=== PATIENT | male | born 1965 | race African-American/Black ===

== ENCOUNTER 2017-10-07 00:51 | Emergency (ER) | payer OTHER ==
--- NOTE | 2017-10-07 00:53 | ED.PDOC ---
History of Present Illness - General Chief Complaint: Respiratory Problem Stated Complaint: flu-like illness Time Seen by Provider: 10/07/17 00:52 Source: patient, RN notes reviewed, Vital Signs reviewed Additional Information: URI symptoms x 1 week with worsening in past 24 hours - mylagias, fevers, and chills. Left work to come and be assessed. - History of Present Illness Timing/Duration: getting worse - over the past 24 hrs. Cough Quality/Degree: moderate, dry cough Possible Cause: unknown cause Improving Factors: nothing Worsening Factors: nothing Associated Symptoms: cough, fever/chills, headache, muscle aches Allergies/Adverse Reactions: Allergies NO KNOWN ALLERGY Allergy (Verified 10/07/17 01:14) Home Medications: Ambulatory Orders Azithromycin [Zithromax Z-Kevin] 1 ea PO DAILY #1 pack 10/07/17 Fluticasone Propionate (Nasal) [Flonase] 1 spray BNAS DAILY #1 bottle 10/07/17 Review of Systems - Review of Systems Constitutional: States: see HPI, chills, fever EENTM: States: see HPI, nose congestion, throat pain Respiratory: States: see HPI, cough Gastrointestinal/Abdominal: States: no symptoms reported Genitourinary: States: no symptoms reported Musculoskeletal: States: see HPI, muscle pain Skin: States: no symptoms reported Neurological: States: no symptoms reported Endocrine: States: no symptoms reported Hematologic/Lymphatic: States: no symptoms reported Family Medical History - Family History Mother Family History: Unknown Living Status: Unknown Physical Exam - Physical Exam General Appearance: Alert, Comfortable, No apparent distress, Well Developed, Well Groomed, Well Hydrated, Well Nourished Eye Exam: bilateral normal ENT Exam: normal ENT inspection, hearing grossly normal, TMs normal, pharynx normal Neck: non-tender, full range of motion, supple, normal inspection Respiratory: normal breath sounds, no respiratory distress, no accessory muscle use Cardiovascular/Chest: normal peripheral pulses, regular rate, rhythm, no murmur Gastrointestinal/Abdominal: non tender, soft Extremity: normal range of motion, non-tender 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 Given fever, mildly decreased POX, and persistent cough - CXR ordered and patient started empirically on Azithromycin. 10/07/17 02:19 CXR Report pending - my impression: no acute cardiopulmonary process. - Results/Orders Results/Orders: Flu negative. Strep negative. Departure - Departure Clinical Impression: Fever Qualifiers: Fever type: unspecified Qualified Code(s): R50.9 - Fever, unspecified Pneumonia Qualifiers: Pneumonia type: due to unspecified organism Laterality: unspecified laterality Lung location: unspecified part of lung Qualified Code(s): J18.9 - Pneumonia, unspecified organism Allergic rhinitis Qualifiers: Chronicity: chronic Allergic rhinitis trigger: unspecified Allergic rhinitis seasonality: seasonal Qualified Code(s): J30.2 - Other seasonal allergic rhinitis Time of Disposition: 02:40 Disposition: Discharge to Home or Self Care Condition: Fair Departure Forms: ED Discharge - Pt. Copy, Patient Portal Self Enrollment Instructions: DI for Viral Upper Respiratory Infection -- Adult Prescriptions: Azithromycin [Zithromax Z-Kevin] 1 ea PO DAILY #1 pack Fluticasone Propionate (Nasal) [Flonase] 1 spray BNAS DAILY #1 bottle Home Medications: Ambulatory Orders Azithromycin [Zithromax Z-Kevin] 1 ea PO DAILY #1 pack 10/07/17 Fluticasone Propionate (Nasal) [Flonase] 1 spray BNAS DAILY #1 bottle 10/07/17 Additional Instructions: Stay well hydrated. Take antibiotics as prescribed. Use over the counter Tylenol and Ibuprofen as directed on label for pain and fever control. Recommend no work for Sunday, Sunday, and Sunday to allow for treatment, rest, and recovery. Follow-up with Primary Care provider if symptoms persist in 3 to 5 days, or return to ER sooner if condition worsens. Flonase should help with your allergic rhinitis symptoms.
[2017-10-07] MEDS ORDERED: ACETAMINOPHEN 500 MG TAB ONE (01:19)
[2017-10-07] MEDS ORDERED: ACETAMINOPHEN 500 MG TAB PO ONE (01:30)
[2017-10-07] MEDS ORDERED: KETOROLAC TROMETHAMINE INJ 60 MG/2 ML VIAL IM ONE (01:41)
[2017-10-07] MEDS ORDERED: AZITHROMYCIN 250 MG TAB PO ONE (02:05)
[2017-10-07 02:34] VITALS: BP 128/72; TEMP 99.9; O2SAT 94
--- NOTE | 2017-10-07 02:39 | RAD ---
Procedure: XR CHEST 2 VIEWS Exam Date: 10/07/2017 Ordering Provider: Tani Burns Clinical Indication: persistent cough and mild hypoxia Comparison: None Findings: Cardiomediastinal silhouette: Within normal limits Pulmonary vasculature : Unremarkable Aortic contour: Unremarkable Focal lung consolidation: None Pleural effusion: None Pneumothorax: None Bones and soft tissues: Nonacute Impression: 1. No acute abnormalities in the chest. Electronically signed by: Jeff Chapman MD 10/07/2017 2:37 AM [employer]
== END 2017-10-07 02:34 | disposition home or self-care (01) ==
LOC: ER 00:51
DX: J18.9 Pneumonia, unspecified organism (principal); J30.2 Other seasonal allergic rhinitis; R50.81 Fever presenting with conditions classified elsewhere
CPT/HCPCS: 71020; 87070; 87502; 87651; J1885; Q0144

== ENCOUNTER 2017-10-23 12:31 | Emergency (ER) | payer OTHER ==
[2017-10-23 12:54] VITALS: TEMP 98.4
--- NOTE | 2017-10-23 13:13 | ED.PDOC ---
History of Present Illness - General Chief Complaint: Respiratory Problem Stated Complaint: cough Time Seen by Provider: 10/23/17 13:06 Source: patient Exam Limitations: no limitations - History of Present Illness Comments: COUGH X 1 MO, CHILLS. LAST WEEK ER = NEG FLU AND STREP, NEG CXR, GAVE XPACK WHICH HE FINISHED. SX NOT IMPROVED. CHEST "RATTLE" AND COUGH. NO CHRONIC MEDS. PMH JUST OCCAS SINUSITIS. Timing/Duration: constant Cough Quality/Degree: moderate Possible Cause: illness exposure Improving Factors: nothing Worsening Factors: nothing Associated Symptoms: cough Respiratory Risk Factors: no cause identified Allergies/Adverse Reactions: Allergies NO KNOWN ALLERGY Allergy (Verified 10/07/17 01:14) Home Medications: Ambulatory Orders Azithromycin [Zithromax Z-Kevin] 1 ea PO DAILY #1 pack 10/07/17 Fluticasone Propionate (Nasal) [Flonase] 1 spray BNAS DAILY #1 bottle 10/07/17 Albuterol Sulfate [Proair Hfa] 2 puff INH Q6H PRN #1 inhaler 10/23/17 Amoxicillin & Pot Clavulanate [Augmentin] 875 mg PO BID #20 tab 10/23/17 Benzonatate Perles [Tessalon Perles] 100 mg PO TID PRN #30 cap 10/23/17 Methylprednisolone [Medrol Dose Kevin] 4 mg PO DAILY #1 tab 10/23/17 Review of Systems - Review of Systems Constitutional: States: chills, malaise EENTM: Denies: ear pain, nose congestion Respiratory: States: cough. Denies: short of breath Cardiology: Denies: chest pain, palpitations Gastrointestinal/Abdominal: States: no symptoms reported Genitourinary: States: no symptoms reported Musculoskeletal: States: no symptoms reported Skin: States: no symptoms reported Neurological: States: no symptoms reported Endocrine: States: no symptoms reported Hematologic/Lymphatic: States: no symptoms reported All other Systems: Reviewed and Negative Past Medical History (General) - Patient Medical History Hx Seizures: No Hx Stroke: No Hx Dementia: No Hx Asthma: No Hx of COPD: No Hx Cardiac Disorders: No Hx Congestive Heart Failure: No Hx Pacemaker: No Hx Hypertension: No Hx Thyroid Disease: No Hx Diabetes: No Hx Gastroesophageal Reflux: No Hx Renal Disease: No Hx Cancer: No Hx of HIV: No Hx Hepatitis C: No Hx MRSA: No Surgical History: appendectomy - Vaccination History Hx Tetanus, Diphtheria Vaccination: No Hx Influenza Vaccination: No Hx Pneumococcal Vaccination: No - Social History Hx Tobacco Use: Yes - smokes cigars Hx Alcohol Use: No Family Medical History - Family History Mother Family History: Unknown Living Status: Unknown Physical Exam - Physical Exam General Appearance: Alert, Ill Appearing Eye Exam: bilateral normal ENT Exam: normal ENT inspection, TMs normal, pharynx normal Neck: non-tender, full range of motion, supple Respiratory: chest non-tender, no respiratory distress, no accessory muscle use , wheezing Cardiovascular/Chest: normal peripheral pulses, regular rate, rhythm, no edema, no gallop, no JVD, no murmur Gastrointestinal/Abdominal: normal bowel sounds, non tender, soft Extremity: non-tender, normal inspection Neurologic: no motor/sensory deficits, alert, normal mood/affect Skin Exam: normal color, warm/dry Lymphatic: no adenopathy Progress - Results/Orders Results/Orders: RAPID FLU NEG. CBC NONCONTRIBUTORY (MILD ANEMIA) CXR NEG BRONCHITIS. GIVEN 1 MO COUGH AND WHEEZE UPON EXAM, I AM TREATING WITH ABX, STEROIDS, ALBUTEROL, TESSALON. Departure - Departure Clinical Impression: Bronchitis, Wheeze, Cough Disposition: Discharge to Home or Self Care Condition: Good Departure Forms: ED Discharge - Pt. Copy, Patient Portal Self Enrollment Instructions: DI for Acute Bronchitis Diet: resume usual diet Activity: increase activity as tolerated Prescriptions: Albuterol Sulfate [Proair Hfa] 2 puff INH Q6H PRN #1 inhaler PRN Reason: Shortness Of Breath/Wheezing Amoxicillin & Pot Clavulanate [Augmentin] 875 mg PO BID #20 tab Benzonatate Perles [Tessalon Perles] 100 mg PO TID PRN #30 cap PRN Reason: Cough Methylprednisolone [Medrol Dose Kevin] 4 mg PO DAILY #1 tab Home Medications: Ambulatory Orders Azithromycin [Zithromax Z-Kevin] 1 ea PO DAILY #1 pack 10/07/17 Fluticasone Propionate (Nasal) [Flonase] 1 spray BNAS DAILY #1 bottle 10/07/17 Albuterol Sulfate [Proair Hfa] 2 puff INH Q6H PRN #1 inhaler 10/23/17 Amoxicillin & Pot Clavulanate [Augmentin] 875 mg PO BID #20 tab 10/23/17 Benzonatate Perles [Tessalon Perles] 100 mg PO TID PRN #30 cap 10/23/17 Methylprednisolone [Medrol Dose Kevin] 4 mg PO DAILY #1 tab 10/23/17
[2017-10-23] MEDS ORDERED: IPRATROPIUM/ALBUTEROL 3 ML VIAL NEB ONE (13:18)
--- NOTE | 2017-10-23 13:57 | RAD ---
Study: Single Frontal View of the Chest. Indication:COUGH X 1 MONTH Comparison: October 07, 2017. Impression: Very subtle interstitial thickening the lung bases, which may reflect atelectasis versus developing consolidation. Short-term follow-up recommended. No pleural effusion or pneumothorax. Heart size normal. 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 Electronically signed by: Titus Nichole MD 10/23/2017 1:56 PM REGIONAL COORDINATOR
[2017-10-23] MEDS ORDERED: methylPREDNISolone ACETATE 80 MG/ML VIAL IM ONE (14:33)
[2017-10-23] MEDS ORDERED: cefTRIAXone SODIUM 1 GM VIAL IM ONE (14:33)
[2017-10-23] MEDS ORDERED: LIDOCAINE 1% 10 ML VIAL INJ ONE (14:42)
[2017-10-23 15:08] VITALS: BP 121/76; O2SAT 96
== END 2017-10-23 15:02 | disposition home or self-care (01) ==
LOC: ER 12:31
DX: J40 Bronchitis, not specified as acute or chronic (principal); F17.290 Nicotine dependence, other tobacco product, uncomplicated
CPT/HCPCS: 36415; 71045; 85025; 87502; 94640; J0696; J1030; J7620

== ENCOUNTER 2018-02-11 16:01 | Emergency (ER) | payer OTHER ==
[2018-02-11] MEDS ORDERED: LIDOCAINE 1% W/ EPINEPHRINE 20 ML VIAL INJ ONE (16:17)
[2018-02-11 16:19] VITALS: TEMP 97.9
--- NOTE | 2018-02-11 16:35 | ED.PDOC ---
History of Present Illness - General Chief Complaint: Skin/Abrasion/Tear Stated Complaint: Fish hook to Left leg Time Seen by Provider: 02/11/18 16:24 Source: patient Exam Limitations: no limitations - History of Present Illness Initial Comments: the patient is a 52-year-old -[place]ian male presenting to the emergency room secondary to getting a fishhook stuck in his left early about an hour prior to arrival. he try to get it out with a Pliers but was unable to. He ended up cutting it about a centimeter from the skin. Timing/Duration: 1 hour Severity: mild Improving Factors: nothing Worsening Factors: nothing Associated Symptoms: denies symptoms Allergies/Adverse Reactions: Allergies NO KNOWN ALLERGY Allergy (Verified 02/11/18 16:16) Home Medications: Ambulatory Orders Sulfa/Trimeth 800/160 (Ds) Tab [Bactrim DS Tab] 1 ea PO BID #7 tab 02/11/18 Review of Systems - Review of Systems Constitutional: States: no symptoms reported EENTM: States: no symptoms reported Respiratory: States: no symptoms reported Cardiology: States: no symptoms reported Gastrointestinal/Abdominal: States: no symptoms reported Genitourinary: States: no symptoms reported Musculoskeletal: States: no symptoms reported Skin: States: see HPI Neurological: States: no symptoms reported Endocrine: States: no symptoms reported All other Systems: No Change from Baseline Past Medical History (General) - Patient Medical History Hx Seizures: No Hx Stroke: No Hx Dementia: No Hx Asthma: No Hx of COPD: No Hx Cardiac Disorders: No Hx Congestive Heart Failure: No Hx Pacemaker: No Hx Hypertension: No Hx Thyroid Disease: No Hx Diabetes: No Hx Gastroesophageal Reflux: No Hx Renal Disease: No Hx Cancer: No Hx of HIV: No Hx Hepatitis C: No Hx MRSA: No Surgical History: appendectomy - Vaccination History Hx Tetanus, Diphtheria Vaccination: No Hx Influenza Vaccination: Yes - 2017 Hx Pneumococcal Vaccination: No - Social History Hx Tobacco Use: Yes Hx Alcohol Use: No Family Medical History - Family History Mother Family History: Unknown Living Status: Unknown Physical Exam - Physical Exam General Appearance: Alert, Comfortable, No apparent distress Eye Exam: bilateral normal Ears, Nose, Throat: hearing grossly normal Neck: full range of motion Respiratory: no respiratory distress, no accessory muscle use Cardiovascular/Chest: normal peripheral pulses, no edema Peripheral Pulses: radial,right: 2+, radial,left: 2+, dorsalis pedis,right: 2+, dorsalis pedis,left: 2+ Rectal Exam: deferred Extremity: normal range of motion, non-tender, no pedal edema, no calf tenderness, normal capillary refill 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 It is in the skin. It is not in the bone. The wound is cleaned with alcohol and pliers and a scalpel are used to back out the fish hook. It is cleaned further with alcohol. A tetanus shot was given. He was given a dose of Bactrim. He'll be placed on Bactrim twice daily for the next 3 days. He needs to monitor for any evidence of infection. ER warnings were given. Departure - Departure Clinical Impression: Fish hook injury of lower leg Qualifiers: Encounter type: initial encounter Laterality: left Qualified Code(s): S89.92XA - Unspecified injury of left lower leg, initial encounter Disposition: Discharge to Home or Self Care Condition: Fair Departure Forms: ED Discharge - Pt. Copy, Patient Portal Self Enrollment Instructions: DI for Wound Infection Diet: regular diet Activity: increase activity as tolerated Prescriptions: Sulfa/Trimeth 800/160 (Ds) Tab [Bactrim DS Tab] 1 ea PO BID #7 tab Home Medications: Ambulatory Orders Sulfa/Trimeth 800/160 (Ds) Tab [Bactrim DS Tab] 1 ea PO BID #7 tab 02/11/18 Additional Instructions: the patient is a 52-year-old male presenting to the emergency room secondary to a fish hook in his left early. It is in the skin. It is not in the bone. The wound is cleaned with alcohol and pliers and a scalpel are used to back out the fish hook. It is cleaned further with alcohol. A tetanus shot was given. He was given a dose of Bactrim. He'll be placed on Bactrim twice daily for the next 3 days. He needs to monitor for any evidence of infection. ER warnings were given.
[2018-02-11] MEDS: TETANUS,DIPHTHERIA,PERTUSSIS 1 EA SYG IM ONE (16:40)
[2018-02-11] MEDS: SULFA/TRIMETH 800/160 (DS) TAB 1 EA TAB PO ONE (16:40)
[2018-02-11 17:02] VITALS: BP 115/72; O2SAT 98
== END 2018-02-11 17:03 | disposition home or self-care (01) ==
LOC: ER 16:01
DX: S80.852A Superficial foreign body, left lower leg, initial encounter (principal); Z87.891 Personal history of nicotine dependence; Z23 Encounter for immunization; X58.XXXA Exposure to other specified factors, initial encounter; Y92.9 Unspecified place or not applicable

== ENCOUNTER 2018-11-18 01:57 | Emergency (ER) | payer OTHER ==
[2018-11-18 02:10] VITALS: BP 156/88; TEMP 99.7; O2SAT 96
[2018-11-18] MEDS ORDERED: IBUPROFEN 200 MG TAB PO ONE (02:19)
[2018-11-18] MEDS ORDERED: OSELTAMIVIR 75 MG CAP PO ONE (02:28)
--- NOTE | 2018-11-18 02:31 | ED.PDOC ---
History of Present Illness - General Chief Complaint: Respiratory Problem Stated Complaint: cough, headache Time Seen by Provider: 11/18/18 02:00 Source: patient Exam Limitations: no limitations - History of Present Illness Initial Comments: Patient is a 53-year-old male presented to the emergency room secondary to 2-3 days of cough, fever, headache and sore throat. Flu is prevalent in the community. No shortness of breath. No syncope or near-syncope. No chest pain. No vomiting. Severity: moderate Improving Factors: nothing Worsening Factors: nothing Allergies/Adverse Reactions: Allergies NO KNOWN ALLERGY Allergy (Verified 02/11/18 16:16) Home Medications: Ambulatory Orders Oseltamivir Capsule [Tamiflu] 75 mg PO BID 5 Days #10 capsule 11/18/18 Review of Systems - Review of Systems Constitutional: States: chills, diaphoresis, fever, malaise EENTM: States: nose congestion, throat pain Respiratory: States: cough Cardiology: States: no symptoms reported Gastrointestinal/Abdominal: States: no symptoms reported Genitourinary: States: no symptoms reported Musculoskeletal: States: no symptoms reported - myalgias Skin: States: no symptoms reported Neurological: States: no symptoms reported Endocrine: States: no symptoms reported All other Systems: No Change from Baseline Past Medical History (General) - Patient Medical History Hx Seizures: No Hx Stroke: No Hx Dementia: No Hx Asthma: No Hx of COPD: No Hx Cardiac Disorders: No Hx Congestive Heart Failure: No Hx Pacemaker: No Hx Hypertension: No Hx Thyroid Disease: No Hx Diabetes: No Hx Gastroesophageal Reflux: No Hx Renal Disease: No Hx Cancer: No Hx of HIV: No Hx Hepatitis C: No Hx MRSA: No Surgical History: appendectomy - Vaccination History Hx Tetanus, Diphtheria Vaccination: No Hx Influenza Vaccination: No Hx Pneumococcal Vaccination: Yes - Social History Hx Tobacco Use: Yes Hx Alcohol Use: Yes - Triage Comment ED Triage Comment: cough, runny nose, headache. "cold" for 3 weeks, worse past day Family Medical History - Family History Mother Family History: Unknown Living Status: Unknown Physical Exam - Physical Exam General Appearance: Alert, No apparent distress Eye Exam: bilateral normal Ears, Nose, Throat: hearing grossly normal, nasal congestion, pharyngeal erythema Neck: full range of motion, supple Respiratory: lungs clear, normal breath sounds, no respiratory distress, no accessory muscle use Cardiovascular/Chest: normal peripheral pulses, regular rate, rhythm, no edema Peripheral Pulses: radial,right: 2+, radial,left: 2+ Gastrointestinal/Abdominal: non tender, soft Rectal Exam: deferred Back Exam: no CVA tenderness, no vertebral tenderness Extremity: normal range of motion, non-tender, normal inspection, no pedal edema, normal capillary refill 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 He has tested positive for here tonight. He received his first dose of Tamiflu here tonight and will be continued on a 5 day course. Needs to keep himself well-hydrated. Motrin can be taken every 8 hours to help reduce symptoms. ER warnings were given for any significant worsening. Departure - Departure Clinical Impression: Influenza Disposition: Discharge to Home or Self Care Condition: Fair Departure Forms: ED Discharge - Pt. Copy, Patient Portal Self Enrollment Instructions: Flu, Adult (DC) Diet: regular diet Activity: increase activity as tolerated Prescriptions: Oseltamivir Capsule [Tamiflu] 75 mg PO BID 5 Days #10 capsule Home Medications: Ambulatory Orders Oseltamivir Capsule [Tamiflu] 75 mg PO BID 5 Days #10 capsule 11/18/18 Additional Instructions: the patient's 53-year-old male presenting to the emergency room with influenza. He has tested positive for here tonight. He received his first dose of Tamiflu here tonight and will be continued on a 5 day course. Needs to keep himself well-hydrated. Motrin can be taken every 8 hours to help reduce symptoms. ER warnings were given for any significant worsening.
== END 2018-11-18 02:38 | disposition home or self-care (01) ==
LOC: ER 01:57
DX: J11.1 Influenza due to unidentified influenza virus with other respiratory manifestations (principal); Z87.891 Personal history of nicotine dependence

== ENCOUNTER 2019-10-12 20:52 | Emergency (ER) | payer OTHER ==
--- NOTE | 2019-10-12 22:00 | RAD ---
EXAM: XR Chest, 1 View CLINICAL HISTORY: The patient is 54 years old and is Male; sob TECHNIQUE: Frontal view of the chest. COMPARISON: Chest radiograph October 23, 2017. FINDINGS: LUNGS: Unremarkable. No consolidation. PLEURAL SPACE: Unremarkable. No pneumothorax. HEART: Unremarkable. No cardiomegaly. MEDIASTINUM: Unremarkable. BONES/JOINTS: Unremarkable. IMPRESSION: No acute cardiopulmonary process. Electronically signed by: iAmee Arredondo MD 10/12/2019 9:58 PM PATIENT CASE MANAGER
--- NOTE | 2019-10-12 22:37 | ED.PDOC ---
History of Present Illness - General Chief Complaint: General Stated Complaint: fever, cough, bodyaches, headache Time Seen by Provider: 10/12/19 21:38 - History of Present Illness Initial Comments: c/o having intermittent fever, non productive cough, bodyaches, headache Timing/Duration: 24 hours Severity: moderate Improving Factors: nothing Worsening Factors: nothing Associated Symptoms: fever/chills, weakness Allergies/Adverse Reactions: Allergies NO KNOWN ALLERGY Allergy (Verified 10/12/19 21:03) Home Medications: Ambulatory Orders NK 10/12/19 Review of Systems - Review of Systems Constitutional: States: see HPI EENTM: States: see HPI Respiratory: States: no symptoms reported Cardiology: States: no symptoms reported Gastrointestinal/Abdominal: States: no symptoms reported Genitourinary: States: no symptoms reported Musculoskeletal: States: no symptoms reported Skin: States: no symptoms reported Neurological: States: headache Endocrine: States: no symptoms reported Hematologic/Lymphatic: States: no symptoms reported Past Medical History (General) - Patient Medical History Hx Seizures: No Hx Stroke: No Hx Dementia: No Hx Asthma: No Hx of COPD: No Hx Cardiac Disorders: No Hx Congestive Heart Failure: No Hx Pacemaker: No Hx Hypertension: No Hx Thyroid Disease: No Hx Diabetes: No Hx Gastroesophageal Reflux: No Hx Renal Disease: No Hx Cancer: No Hx of HIV: No Hx Hepatitis C: No Hx MRSA: No Surgical History: appendectomy - Vaccination History Hx Tetanus, Diphtheria Vaccination: No Hx Influenza Vaccination: Yes Hx Pneumococcal Vaccination: Yes - Social History Hx Tobacco Use: Yes Hx Alcohol Use: No Family Medical History - Family History Mother Family History: Unknown Living Status: Unknown Physical Exam - Physical Exam General Appearance: Alert, Comfortable, Well Developed, Well Groomed, Well Hydrated, Well Nourished Eye Exam: bilateral normal Ears, Nose, Throat: hearing grossly normal, normal ENT inspection, normal pharynx Neck: non-tender, full range of motion, supple Respiratory: lungs clear, normal breath sounds, no respiratory distress, no accessory muscle use Cardiovascular/Chest: normal peripheral pulses, regular rate, rhythm, no edema, no gallop, no JVD, no murmur Gastrointestinal/Abdominal: non tender, soft Back Exam: normal inspection Extremity: normal range of motion, non-tender, normal inspection Neurologic: no motor/sensory deficits, alert, normal mood/affect, oriented x 3 Skin Exam: normal color, warm/dry Progress - Results/Orders Results/Orders: 10/12/19 21:06 STREP A SCREEN CULTURE Stat Laboratory Results Group A Strep Rapid Negative (NEGATIVE) 10/12/19 21:06 Departure - Departure Clinical Impression: Upper respiratory infection Time of Disposition: 22:36 Disposition: Discharge to Home or Self Care Condition: Good Departure Forms: ED Discharge - Pt. Copy, Patient Portal Self Enrollment Diet: resume usual diet Activity: increase activity as tolerated Home Medications: Ambulatory Orders NK 10/12/19 Additional Instructions: Follow up PCP in 1-2 days
[2019-10-12] MEDS ORDERED: ACETAMINOPHEN 500 MG TAB PO ONE (22:40)
[2019-10-12 22:53] VITALS: BP 153/77; TEMP 101; O2SAT 96
== END 2019-10-12 22:52 | disposition home or self-care (01) ==
LOC: ER 20:52
DX: J06.9 Acute upper respiratory infection, unspecified (principal); Z87.891 Personal history of nicotine dependence

== ENCOUNTER 2019-12-26 06:57 | Emergency (ER) | payer OTHER ==
--- NOTE | 2019-12-26 07:23 | ED.PDOC ---
History of Present Illness - General Time Seen by Provider: 12/26/19 07:18 Source: patient Exam Limitations: no limitations Additional Information: 54yo M presents with cough, congestion, body aches and subjective fevers onset 2 days. The patient reports prior hx of of the same 3 months ago. Symptoms at that time improved with nebulizer at home. The patient denies recent travel or sick contacts. He smokes cigars on occasion. No other reported issues. - History of Present Illness Cough Quality/Degree: dry cough Possible Cause: occasional episodes Allergies/Adverse Reactions: Allergies NO KNOWN ALLERGY Allergy (Verified 12/26/19 07:24) Home Medications: Ambulatory Orders Albuterol Sulfate Nebs [Proventil Nebs] 2.5 mg INH Q6HRS PRN 14 Days #60 vial 12/26/19 Azithromycin Tab [Zithromax Tab] 250 mg PO DAILY #6 tab 12/26/19 Prednisone 20 mg PO DAILY #12 tab 12/26/19 Review of Systems - Review of Systems Constitutional: States: fever - Subjective. Denies: chills EENTM: States: nose congestion. Denies: double vision, throat swelling Respiratory: States: cough, short of breath, wheezing. Denies: stridor Cardiology: Denies: chest pain, palpitations Gastrointestinal/Abdominal: Denies: diarrhea, nausea Musculoskeletal: States: joint pain, muscle pain. Denies: back pain Skin: Denies: change in color, rash Neurological: Denies: headache, numbness, weakness Hematologic/Lymphatic: Denies: anemia, swollen glands Past Medical History (General) - Patient Medical History Hx Seizures: No Hx Stroke: No Hx Dementia: No Hx Asthma: No Hx of COPD: No Hx Cardiac Disorders: No Hx Congestive Heart Failure: No Hx Pacemaker: No Hx Hypertension: No Hx Thyroid Disease: No Hx Diabetes: No Hx Gastroesophageal Reflux: No Hx Renal Disease: No Hx Cancer: No Hx of HIV: No Hx Hepatitis C: No Hx MRSA: No - Vaccination History Hx Tetanus, Diphtheria Vaccination: No Hx Influenza Vaccination: Yes Hx Pneumococcal Vaccination: Yes - Social History Hx Tobacco Use: Yes Hx Alcohol Use: No Family Medical History - Family History Mother Family History: Unknown Living Status: Unknown Father Living Status: Hx Family Diabetes: Yes Physical Exam - Physical Exam General Appearance: Alert Eye Exam: bilateral normal ENT Exam: hearing grossly normal, nasal congestion Neck: non-tender, full range of motion, supple Respiratory: lungs clear, normal breath sounds, no respiratory distress - Intermittent cough, dry. Cardiovascular/Chest: regular rate, rhythm, no edema Gastrointestinal/Abdominal: non tender, soft Extremity: normal range of motion, normal capillary refill Neurologic: no motor/sensory deficits, alert Skin Exam: normal color, warm/dry Lymphatic: no adenopathy Progress - Progress Progress: 12/26/19 07:56 The patient is overall well appearing and tolerating symptoms. He has cough, congestion and subjective fever which would overall suggest a viral type illness. He does have hx of reactive airway with past benefit of nebs but is presently out. I will provide symptomatic treatment for him to use at home. We discussed that today's evaluation does not r/o COVID-19 and give the risk and growing previlence, I recommended the patient self quarantine at home for 14 days and follow up with his PCP/[facility]. Return warnings given specifically worsening breathing/SOB. It was a pleasure to care for this patient today. 12/26/19 08:22 Lex Urbina MD. #[id number] - Results/Orders Results/Orders: Influenza (neg) - EKG/XRAY/CT XRAY: chest - No acute findings. See formal reading. Departure - Departure Clinical Impression: Cough Upper respiratory infection Qualifiers: URI type: unspecified viral URI Qualified Code(s): J06.9 - Acute upper respiratory infection, unspecified Time of Disposition: 08:00 Disposition: Discharge to Home or Self Care Condition: Fair Departure Forms: ED Discharge - Pt. Copy, Patient Portal Self Enrollment Instructions: Viral Upper Respiratory Infection, Adult (DC) Prescriptions: Albuterol Sulfate Nebs [Proventil Nebs] 2.5 mg INH Q6HRS PRN 14 Days #60 vial PRN Reason: Wheezing Azithromycin Tab [Zithromax Tab] 250 mg PO DAILY #6 tab Prednisone 20 mg PO DAILY #12 tab Home Medications: Ambulatory Orders Albuterol Sulfate Nebs [Proventil Nebs] 2.5 mg INH Q6HRS PRN 14 Days #60 vial 12/26/19 Azithromycin Tab [Zithromax Tab] 250 mg PO DAILY #6 tab 12/26/19 Prednisone 20 mg PO DAILY #12 tab 12/26/19 Additional Instructions: We cannot rule out COVID-19 today. The current recommendation is for self quarantine for 14 days and follow up with [facility] and/or your PCP for additional evaluation and consideration of testing.
--- NOTE | 2019-12-26 07:48 | RAD ---
EXAM DESCRIPTION: X-ray single view chest. CLINICAL HISTORY: 54 years Male, Cough COMPARISON: 10/12/2019 and 10/23/2017 TECHNIQUE: Single portable x-ray view of the chest performed on 12/26/2019 at 7:37 AM FINDINGS: The lungs are well expanded and are clear. There is no evidence of a pneumothorax. The cardiac silhouette is normal in size and configuration. The mediastinal contours are normal. No acute osseous abnormality is identified. No focal soft tissue abnormalities are seen. Lines and tubes: None. IMPRESSION: No evidence of acute intrathoracic disease. Electronically signed by: Monae Vargas DO 12/26/2019 7:46 AM CDT
[2019-12-26 08:50] VITALS: BP 139/82; TEMP 100.2; O2SAT 92
== END 2019-12-26 08:28 | disposition home or self-care (01) ==
LOC: ER 06:57
DX: J06.9 Acute upper respiratory infection, unspecified (principal); J45.909 Unspecified asthma, uncomplicated; Z87.891 Personal history of nicotine dependence; Z72.0 Tobacco use

== ENCOUNTER 2020-07-17 12:07 | Emergency (ER) | payer OTHER ==
[2020-07-17] MEDS ORDERED: SODIUM CHLORIDE 0.9% (FLUSH) 10 ML SYG IV PRN (12:27)
--- NOTE | 2020-07-17 12:27 | ED.PDOC ---
History of Present Illness - General Time Seen by Provider: 07/17/20 12:26 Source: patient - History of Present Illness Initial Comments: 55-year-old male who presents with chief complaint of cough and fever. Reports onset of illness 2 days ago with gradual worsening. Originally began as congestion and rhinorrhea which has since progressed to worsening cough which is now productive for thick clear mucus. Cough is worse with activity/exertion. He also reports some dyspnea and gagging due to frequent coughing. Additionally he reports sore throat, body aches, malaise, and fever. States that fever began last night and was 101 Fahrenheit at home. Denies any abdominal pain, nausea/vomiting/diarrhea, urinary symptoms, leg swelling, chest pain. he has not taken any medication for relief of symptoms. He presented to the urgent care in [facility] for evaluation who referred him to come to the emergency room. He does not have a regular doctor. He does smoke cigars. He reports there have been some coworkers at his job who have recently tested positive for COVID-19. Allergies/Adverse Reactions: Allergies NO KNOWN ALLERGY Allergy (Verified 07/17/20 12:28) Home Medications: Ambulatory Orders Albuterol Sulfate [Proair Hfa] 2 puff INH Q4H PRN 30 Days #1 inhaler 07/17/20 Azithromycin Tab [Zithromax Tab] 250 mg PO DAILY 5 Days #6 tab 07/17/20 predniSONE 60 mg PO DAILY 5 Days #15 tab 07/17/20 Review of Systems - Review of Systems Review of Systems: 07/17/20 12:39 as per HPI All other Systems: Reviewed and Negative Past Medical History (General) - Patient Medical History Hx Seizures: No Hx Stroke: No Hx Dementia: No Hx Asthma: No Hx of COPD: No Hx Cardiac Disorders: No Hx Congestive Heart Failure: No Hx Pacemaker: No Hx Hypertension: No Hx Thyroid Disease: No Hx Diabetes: No Hx Gastroesophageal Reflux: No Hx Renal Disease: No Hx Cancer: No Hx of HIV: No Hx Hepatitis C: No Hx MRSA: No - Vaccination History Hx Tetanus, Diphtheria Vaccination: No Hx Influenza Vaccination: Yes Hx Pneumococcal Vaccination: Yes - Social History Hx Tobacco Use: Yes Hx Alcohol Use: No Hx Substance Use: No Hx Substance Use Treatment: No Hx Depression: No - Female History Patient : No Family Medical History - Family History Mother Family History: Unknown Living Status: Unknown Father Living Status: Hx Family Diabetes: Yes Physical Exam - Physical Exam General Appearance: Alert, Comfortable, No apparent distress Eye Exam: bilateral normal Ears, Nose, Throat: hearing grossly normal, pharyngeal erythema, other - No tonsillar swelling or exudates Neck: full range of motion, supple, lymphadenopathy (R) - slightly tender Respiratory: no respiratory distress, no accessory muscle use, other - Slightly diminished breath sounds throughout with minimal end expiratory wheezing appreciated at the lung bases, no rales or rhonchi appreciated Cardiovascular/Chest: normal peripheral pulses, regular rate, rhythm, no edema, no gallop, no JVD, no murmur Peripheral Pulses: radial,right: 2+, radial,left: 2+ Gastrointestinal/Abdominal: non tender, soft, no organomegaly Back Exam: normal inspection, no CVA tenderness, no vertebral tenderness Extremity: normal range of motion, non-tender, normal inspection, no pedal edema, no calf tenderness, normal capillary refill Neurologic: no motor/sensory deficits, alert, normal mood/affect, oriented x 3 Skin Exam: normal color, diaphoresis Progress - Progress Progress: 07/17/20 12:40 Cough and fever -Given the clinical presentation, appears most consistent with viral infection. Consider viral URI, COVID-19, flu, other viral illness. Consider also pneumonia, CHF, COPD, strep -Blood pressure slightly elevated 150s/80s upon arrival, afebrile, remainder vitals stable. -Obtain blood work and cardiac work-up, COVID-19/respiratory panel, rapid strep 07/17/20 14:35 -Patient's blood work was largely consistent with viral infection with leukopenia. Otherwise pretty unremarkable. Respiratory viral panel is positive for rhinovirus/enterovirus, negative for complete 19 and other tested pathogen. Chest x-ray shows no acute processes per my read. -Discussed all the findings with patient. Suspect he is also having some mild reactive airway disease. He possibly may be developing early COPD given his smoking history and mild end expiratory wheezing on exam. Given a shot of Solu- Medrol 125 mg IM in the ED. Discharged home with albuterol handheld inhaler to use as needed. Given a printed prescription of azithromycin and instructed to take if he develops colored sputum with continued cough and fevers. -Discharged home in good condition, return warnings discussed. Advised to follow-up closely with his primary care physician to repeat his blood pressure in the next 1 to 2 weeks. Michael Black MD Billing #[id number] 07/17/20 12:30 EKG STAT 07/17/20 13:06 STREP A SCREEN CULTURE Stat Laboratory Results - last 24 hr 07/17/20 07/17/20 07/17/20 12:45 12:45 12:45 WBC 4.3 L RBC 4.35 L Hgb 13.6 L Hct 40.6 L MCV 93.5 MCH 31.3 H MCHC 33.5 RDW 13.3 Plt Count 170 MPV 9.5 Absolute Neuts (auto) 2.00 Absolute Lymphs (auto) 1.60 Absolute Monos (auto) 0.30 Absolute Eos (auto) 0.40 Absolute Basos (auto) 0.00 Neutrophils % 45.4 Lymphocytes % 37.6 Monocytes % 8.0 Eosinophils % 8.4 H Basophils % 0.6 Sodium 140 Potassium 3.3 L Chloride 112 H Carbon Dioxide 20 L Anion Gap 11.3 L BUN 13 Creatinine 1.09 BUN/Creatinine Ratio 11.9 Random Glucose 114 H Serum Osmolality 280.4 Calcium 8.2 L Total Bilirubin 0.6 AST 22 ALT 19 Alkaline Phosphatase 64 Troponin I < 0.02 B-Natriuretic Peptide 92.9 Serum Total Protein 6.6 Albumin 3.1 L Globulin 3.5 Albumin/Globulin Ratio 0.9 L Group A Strep Rapid 07/17/20 13:06 WBC RBC Hgb Hct MCV MCH MCHC RDW Plt Count MPV Absolute Neuts (auto) Absolute Lymphs (auto) Absolute Monos (auto) Absolute Eos (auto) Absolute Basos (auto) Neutrophils % Lymphocytes % Monocytes % Eosinophils % Basophils % Sodium Potassium Chloride Carbon Dioxide Anion Gap BUN Creatinine BUN/Creatinine Ratio Random Glucose Serum Osmolality Calcium Total Bilirubin AST ALT Alkaline Phosphatase Troponin I B-Natriuretic Peptide Serum Total Protein Albumin Globulin Albumin/Globulin Ratio Group A Strep Rapid Negative - EKG/XRAY/CT EKG: Roby - Heart rate 55, no ST elevations or Q waves noted, axis normal, intervals normal, no prior EKG for comparison., Sinus XRAY: chest - No acute processes per my read Departure - Departure Clinical Impression: Upper respiratory infection, viral, COPD exacerbation Time of Disposition: 14:03 Disposition: Discharge to Home or Self Care Condition: Good Instructions: Viral Upper Respiratory Infection, Adult (DC) Diet: resume usual diet Activity: increase activity as tolerated Prescriptions: predniSONE 60 mg PO DAILY 5 Days #15 tab Albuterol Sulfate [Proair Hfa] 2 puff INH Q4H PRN 30 Days #1 inhaler PRN Reason: Wheezing Azithromycin Tab [Zithromax Tab] 250 mg PO DAILY 5 Days #6 tab Home Medications: Ambulatory Orders Albuterol Sulfate [Proair Hfa] 2 puff INH Q4H PRN 30 Days #1 inhaler 07/17/20 Azithromycin Tab [Zithromax Tab] 250 mg PO DAILY 5 Days #6 tab 07/17/20 predniSONE 60 mg PO DAILY 5 Days #15 tab 07/17/20 Additional Instructions: Remain well-hydrated and advance her diet and activity level as tolerated. You may continue to take [id number] medications as needed for upper respiratory symptoms including cough and cold medications, Tylenol, ibuprofen, etc. I advised that you quit smoking at least until you are well as it could worsen your acute illness. Permanent smoking cessation is advised as well. Return to the ED if you develop any concerning symptoms such as worsening shortness of breath, chest pain, intractable nausea and vomiting, etc. Follow- up with your primary care physician is recommended in the next 3 to 5 days for repeat evaluation or sooner as needed. Your blood pressure was noted to be sl ightly elevated this visit and will also need to be rechecked in the clinic by your doctor.
[2020-07-17 12:36] VITALS: O2SAT 98
--- NOTE | 2020-07-17 13:09 | RAD ---
EXAM DESCRIPTION: XR Chest, one view CLINICAL HISTORY: cough, fevers. COMPARISON: December 25, 2016 FINDINGS: AP view of the chest is obtained in apical lordotic projection. The heart is normal in size. The pulmonary vascularity is normal. The lungs are clear. No dense focal consolidation is seen. No pneumothorax or pleural effusion is seen. The osseous structures appear unremarkable. IMPRESSION: No acute cardiopulmonary process. Electronically signed by: Nohemy Tolentino MD 07/17/2020 1:07 PM CDT
[2020-07-17] MEDS ORDERED: methylPREDNISolone SODIUM SUC 125 MG/2 ML VIAL IM ONE (14:03)
[2020-07-17] MEDS ORDERED: POTASSIUM CHLORIDE 20 MEQ TAB PO ONE (14:04)
[2020-07-17] MEDS ORDERED: cloNIDine HCL 0.1 MG TAB PO ONE (14:30)
[2020-07-17] MEDS ORDERED: cloNIDine HCL 0.1 MG TAB ONE (14:30)
[2020-07-17 15:08] VITALS: BP 177/95; TEMP 97.5
== END 2020-07-17 14:58 | disposition home or self-care (01) ==
LOC: ER 12:07
DX: J06.9 Acute upper respiratory infection, unspecified (principal); J44.1 Chronic obstructive pulmonary disease with (acute) exacerbation; R00.1 Bradycardia, unspecified; F17.290 Nicotine dependence, other tobacco product, uncomplicated; Z20.828 Contact with and (suspected) exposure to other viral communicable diseases
CPT/HCPCS: 36415; 71045; 80053; 83880; 84484; 85025; 87070; 87486; 87581; 87633; 87635; 87880; 93005; J2930